=== PATIENT | female | born 1935 | race Caucasian/White ===

== ENCOUNTER → 2020-09-24 | Outpatient (CLI) | payer OTHER ==
[2020-09-24 09:43] LABS: HEMOGLOBIN 13.1 gm/dl (12.3-15.3); RED BLOOD COUNT 4.29 M/UL (4.00-5.10); WHITE BLOOD COUNT 6.4 K/UL (4.5-11.0)
[2020-09-24 10:05] LABS: BUN/CREATININE RATIO 13 (0-10)
[2020-09-25 08:14] LABS: THYROXINE (T4) 6.7 ug/dL (4.5-12.0)
== END ==
LOC: LAB 09:13
PROVIDERS: Nurse Practitioner
DX: I10 Essential (primary) hypertension (principal); E78.5 Hyperlipidemia, unspecified; F32.9 Major depressive disorder, single episode, unspecified; K21.9 Gastro-esophageal reflux disease without esophagitis
CPT/HCPCS: 36415; 80053; 80061; 84436; 84443; 84480; 85025

== ENCOUNTER → 2021-04-07 | Outpatient (CLI) | payer OTHER ==
[2021-04-07 08:43] LABS: HEMOGLOBIN 13.6 gm/dl (12.3-15.3); RED BLOOD COUNT 4.4 M/UL (4.00-5.10); WHITE BLOOD COUNT 5.8 K/UL (4.5-11.0)
[2021-04-07 09:24] LABS: BUN/CREATININE RATIO 13 (0-10)
[2021-04-08 05:20] LABS: VITAMIN D, 25-HYDROXY 41.9 ng/mL (30.0-100.0)
== END ==
LOC: LAB 08:19
PROVIDERS: Nurse Practitioner
DX: I10 Essential (primary) hypertension (principal); E78.5 Hyperlipidemia, unspecified; K21.9 Gastro-esophageal reflux disease without esophagitis; R13.10 Dysphagia, unspecified; F32.9 Major depressive disorder, single episode, unspecified; R53.83 Other fatigue
CPT/HCPCS: 36415; 80053; 80061; 81001; 84436; 84443; 84480; 85025

== ENCOUNTER → 2021-05-27 | Outpatient (CLI) | payer OTHER | LOC: KOH-I 12:58 | DX: R10.84 Generalized abdominal pain (principal); N20.0 Calculus of kidney | CPT/HCPCS: 74176 ==

== ENCOUNTER → 2021-05-28 | Outpatient (CLI) | payer OTHER | LOC: US 08:42 | DX: R10.11 Right upper quadrant pain (principal) | CPT/HCPCS: 76705 ==

== ENCOUNTER → 2021-11-02 | Outpatient (CLI) | payer OTHER | LOC: RAD 09:54 | DX: N20.9 Urinary calculus, unspecified (principal); N20.0 Calculus of kidney; K59.00 Constipation, unspecified | CPT/HCPCS: 74018 ==

== ENCOUNTER → 2021-12-16 | Outpatient (CLI) | payer OTHER ==
[2021-12-16 08:41] LABS: HEMOGLOBIN 13.1 gm/dl (12.3-15.3); RED BLOOD COUNT 4.27 M/UL (4.00-5.10); WHITE BLOOD COUNT 5.5 K/UL (4.5-11.0)
[2021-12-16 09:42] LABS: BUN/CREATININE RATIO 14 (0-10)
[2021-12-17 07:12] LABS: VITAMIN D, 25-HYDROXY 22.2 ng/mL (30.0-100.0)
[2021-12-17 08:17] LABS: THYROXINE (T4) 7.8 ug/dL (4.5-12.0)
== END ==
LOC: LAB 08:11
PROVIDERS: Nurse Practitioner
DX: K21.9 Gastro-esophageal reflux disease without esophagitis (principal); E55.9 Vitamin D deficiency, unspecified; R53.83 Other fatigue; E78.5 Hyperlipidemia, unspecified; I10 Essential (primary) hypertension; N20.9 Urinary calculus, unspecified; R13.10 Dysphagia, unspecified; R10.84 Generalized abdominal pain
CPT/HCPCS: 36415; 80053; 81001; 84436; 84443; 84480; 85025

== ENCOUNTER → 2022-04-29 | Outpatient (CLI) | payer OTHER | LOC: RT 10:32 | DX: Z01.810 Encounter for preprocedural cardiovascular examination (principal); I10 Essential (primary) hypertension; R94.31 Abnormal electrocardiogram [ECG] [EKG]; R00.1 Bradycardia, unspecified; I25.2 Old myocardial infarction | CPT/HCPCS: 93005 ==